=== PATIENT | male | born 1945 | race Hispanic/Latino ===

== ENCOUNTER 2017-04-08 20:51 | Emergency (ER) | payer MEDICARE ==
[~2017-04-08 20:51] MED LIST: CAND32TA9 PO; LEVO500T2 PO
[2017-04-08 21:22] LABS: APPEARANCE,URINE Clear (CLEAR); BILIRUBIN,URINE Negative (NEGATIVE); COLOR,URINE Yellow (YELLOW); GLUCOSE, URINE (UA) Negative (NEGATIVE); KETONES,URINE Negative (NEGATIVE); LEUKOCYTE ESTERASE ,URINE Negative (NEGATIVE); NITRATE,URINE Negative (NEGATIVE); OCCULT BLOOD,URINE Negative (NEGATIVE); PH,URINE 6.5 (5.0-8.0); PROTEIN,URINE Trace (NEGATIVE)
[2017-04-08 21:25] LABS: BASOPHILS % (AUTO) 1.7 % (0.0-5.0); EOSINOPHILS % (AUTO) 2.8 % (0.0-8.0); HEMATOCRIT 35.8 % (42-54); LYMPHOCYTES % (AUTO) 10.2 % (21.0-51.0); MEAN CORPUSCULAR HEMOGLOBIN 28.3 pg (27.0-33.0); MEAN CORPUSCULAR HGB CONC 34.4 g/dL (32.0-36.0); MEAN CORPUSCULAR VOLUME 82.3 fL (79-99); MONOCYTES % (AUTO) 7.8 % (3.0-13.0); NEUTROPHILS % (AUTO) 77.5 % (40.0-77.0); NUCLEATED RED BLOOD CELLS 0.1 % (0.0-0.19); PLATELET COUNT (AUTO) 163 K/uL (130-400); RED BLOOD CELL COUNT(AUTO) 4.35 MIL/uL (4.50-6.20); RED CELL DISTRIBUTION WIDTH 17.1 % (11.0-15.5); WHITE BLOOD COUNT (AUTO) 5.5 K/uL (4.8-10.8)
[2017-04-08 21:32] LABS: BACTERIA,URINE None Seen /HPF (None Seen); MUCUS,URINE Moderate LPF (None Seen); RBC,URINE None Seen /HPF (0-1); SQUAMOUS EPITHELIAL CELL,UR None Seen /LPF (0-2); WBC,URINE None Seen /HPF (0-1); YEAST,URINE BUDDING Moderate /HPF (None Seen)
[2017-04-08 21:35] LABS: CREATININE 1.1 mg/dL (0.5-1.5)
[2017-04-08 21:40] LABS: ALBUMIN 3.7 g/dL (3.5-5.0); BILIRUBIN,TOTAL 0.5 mg/dL (0.2-1.0); TOTAL PROTEIN, SERUM 7.8 g/dL (6.0-8.3)
[2017-04-08] MEDS ORDERED: ACETAMINOPHEN 325 MG TAB ONE (21:41)
[2017-04-08 21:57] LABS: RAPID GROUP A STREP NEGATIVE (NEGATIVE)
[2017-04-08] MEDS ORDERED: IBUPROFEN 600 MG TABLET ONE (22:32)
[2017-04-08] MEDS ORDERED: IPRATROPIUM/ALBUTEROL SULFATE 3 ML SOLUTION IH ONE (23:05)
== END 2017-04-08 23:25 | disposition home or self-care (01) ==
LOC: EDH 20:51
DX: J10.1 Influenza due to other identified influenza virus with other respiratory manifestations (principal); I10 Essential (primary) hypertension
CPT/HCPCS: 36415; 80053; 81001; 85025; 87804; 87880

== ENCOUNTER → 2017-06-15 | Outpatient (CLI) | payer MEDICARE | END | disposition home or self-care (01) | LOC: RAH 12:38 | PROVIDERS: ATTEND Internal Medicine | DX: M25.512 Pain in left shoulder (principal) | CPT/HCPCS: 73221 ==

== ENCOUNTER → 2017-09-09 | Outpatient (CLI) | payer MEDICARE | END | disposition home or self-care (01) | LOC: RAH 09:53 | PROVIDERS: ATTEND Internal Medicine | DX: Z01.812 Encounter for preprocedural laboratory examination (principal); K44.9 Diaphragmatic hernia without obstruction or gangrene | CPT/HCPCS: 71046 ==

== ENCOUNTER 2018-04-21 12:34 | Emergency (ER) | payer MEDICARE | END 2018-04-21 15:31 | disposition home or self-care (01) | LOC: EDH 12:34 | DX: S93.401A Sprain of unspecified ligament of right ankle, initial encounter (principal); I10 Essential (primary) hypertension; Z98.890 Other specified postprocedural states; W18.39XA Other fall on same level, initial encounter; Y93.89 Activity, other specified; Y92.009 Unspecified place in unspecified non-institutional (private) residence as the place of occurrence of the external cause; Y99.8 Other external cause status | CPT/HCPCS: 73610 ==

== ENCOUNTER 2019-05-20 12:27 | Inpatient (IN) | payer MEDICARE ==
[~2019-05-20] VITALS: Ht 177.8 cm; Wt 138.8 kg
[2019-05-20] MEDS ORDERED: ZOSYN 3.375GM+NS 50ML 50 ML IV ONE ×2 (13:00→20:55)
[2019-05-20] MEDS ORDERED: ACETAMINOPHEN EXTRA STRENGTH 500 MG TABLET ONE (13:00)
[2019-05-20] MEDS ORDERED: SODIUM CHLORIDE 0.9% 1000ML 1,000 ML IV ONE ×2 (13:00→17:15)
[2019-05-20 13:13] LABS: BASOPHILS % (AUTO) 0.1 % (0.0-5.0); EOSINOPHILS % (AUTO) 0.4 % (0.0-8.0); HEMATOCRIT 41.7 % (42-54); LYMPHOCYTES % (AUTO) 3.6 % (21.0-51.0); MEAN CORPUSCULAR HEMOGLOBIN 29.4 pg (27.0-33.0); MEAN CORPUSCULAR HGB CONC 33.3 g/dL (32.0-36.0); MEAN CORPUSCULAR VOLUME 88.3 fL (79-99); MONOCYTES % (AUTO) 5.5 % (3.0-13.0); NEUTROPHILS % (AUTO) 89.1 % (40.0-77.0); PLATELET COUNT (AUTO) 117 K/uL (130-400); RED BLOOD CELL COUNT(AUTO) 4.72 MIL/uL (4.50-6.20); RED CELL DISTRIBUTION WIDTH 14.1 % (11.0-15.5); WHITE BLOOD COUNT (AUTO) 13.5 K/uL (4.8-10.8)
[2019-05-20 13:28] LABS: CARBON DIOXIDE 22 mmol/L (21-32); CHLORIDE 97 mmol/L (101-111); CREATININE 1.1 mg/dL (0.5-1.5); GLOMERULAR FILTR. RATE CALC 70 mL/min (>60); GLUCOSE,RANDOM 137 mg/dL (70-105); INR 1.02 (0.85-1.15); PARTIAL THROMBOPLASTIN TIME 34.1 SEC (26.3-35.5); POTASSIUM 3.5 mmol/L (3.5-5.1); SODIUM SERUM 132 mmol/L (136-145); UREA NITROGEN, BLOOD 15 mg/dL (7-18)
[2019-05-20 13:39] LABS: BILIRUBIN,TOTAL 1.9 mg/dL (0.2-1.0); TOTAL PROTEIN, SERUM 7.3 g/dL (6.0-8.3); TROPONIN I < 0.04 ng/mL (0.00-0.06)
[2019-05-20 13:47] LABS: ALANINE AMINOTRANSFERASE 18 U/L (12-78); ALBUMIN 3.3 g/dL (3.5-5.0); ASPARTATE AMINOTRANSFERASE 16 U/L (10-37); CREATINE KINASE, TOTAL 37 U/L (21-232); MYOGLOBIN 50 ng/mL (10-92)
[2019-05-20 13:48] LABS: APPEARANCE,URINE CLEAR (CLEAR); BILIRUBIN,URINE SMALL (NEGATIVE); COLOR,URINE YELLOW (YELLOW); GLUCOSE, URINE (UA) NEGATIVE (NEGATIVE); KETONES,URINE NEGATIVE (NEGATIVE); LEUKOCYTE ESTERASE ,URINE SMALL (NEGATIVE); NITRATE,URINE NEGATIVE (NEGATIVE); OCCULT BLOOD,URINE MODERATE (NEGATIVE); PH,URINE 5.5 (5.0-8.0); PROTEIN,URINE 100 mg/dL (NEGATIVE)
[2019-05-20 13:59] LABS: BACTERIA,URINE Few /HPF (None Seen); RBC,URINE 0-1 /HPF (0-1); WBC,URINE 26-50 /HPF (0-1)
[2019-05-20 14:00] LABS: SQUAMOUS EPITHELIAL CELL,UR Few /HPF (0-2)
[2019-05-20] MEDS ORDERED: HYDRALAZINE HCL 20 MG/ML VIAL IV PRN (15:30)
[2019-05-20] MEDS ORDERED: ONDANSETRON HCL 4 MG/2 ML VIAL IV PRN (15:30)
[2019-05-20] MEDS ORDERED: ACETAMINOPHEN 325 MG TAB PO PRN ×2 (15:30)
[2019-05-20] MEDS ORDERED: FAMOTIDINE/PF 20 MG/2 ML VIAL IV ONE (20:56)
[2019-05-20] MEDS ORDERED: ACETAMINOPHEN 325 MG TAB ONE (21:11)
[2019-05-21] MEDS ORDERED: ZOSYN 3.375GM+NS 50ML 50 ML IV ONE ×3 (04:53→14:11)
[2019-05-21] MEDS ORDERED: FAMOTIDINE/PF 20 MG/2 ML VIAL IV ONE (08:23)
[2019-05-21] MEDS ORDERED: HYDRALAZINE HCL 20 MG/ML VIAL ONE (08:34)
--- NOTE | 2019-05-21 09:54 | NUR ---
EDEMA IN LOWER LEGS Addendum: 05/21/19 at 1008 by HEIKE BARONE RN RN Amended: Links added.
[2019-05-21] MEDS ORDERED: SODIUM CHLORIDE 0.9% 1000ML 1,000 ML IV ONE (10:01)
[2019-05-21 10:06] LABS: BASOPHILS % (AUTO) 0.3 % (0.0-5.0); EOSINOPHILS % (AUTO) 0.3 % (0.0-8.0); HEMATOCRIT 42.5 % (42-54); LYMPHOCYTES % (AUTO) 5.5 % (21.0-51.0); MEAN CORPUSCULAR HEMOGLOBIN 29.6 pg (27.0-33.0); MEAN CORPUSCULAR HGB CONC 32.5 g/dL (32.0-36.0); MEAN CORPUSCULAR VOLUME 91.2 fL (79-99); MONOCYTES % (AUTO) 4.8 % (3.0-13.0); NEUTROPHILS % (AUTO) 88.5 % (40.0-77.0); PLATELET COUNT (AUTO) 117 K/uL (130-400); RED BLOOD CELL COUNT(AUTO) 4.66 MIL/uL (4.50-6.20); RED CELL DISTRIBUTION WIDTH 14.6 % (11.0-15.5); WHITE BLOOD COUNT (AUTO) 11.8 K/uL (4.8-10.8)
[2019-05-21 10:18] LABS: BILIRUBIN,TOTAL 1.4 mg/dL (0.2-1.0); CREATININE 1.2 mg/dL (0.5-1.5); POTASSIUM 3.7 mmol/L (3.5-5.1); TOTAL PROTEIN, SERUM 7.4 g/dL (6.0-8.3)
[2019-05-21] MEDS: SODIUM CHLORIDE 0.9% 1000ML 1,000 ML IV SCH ×3 (18:13→18:15)
[2019-05-21] MEDS: FAMOTIDINE/PF 20 MG/2 ML VIAL IV SCH ×3 (18:13→20:17)
[2019-05-21] MEDS: ZOSYN 3.375GM+NS 50ML 50 ML IV SCH ×4 (18:13→20:16)
[2019-05-21 18:39] VITALS: BP 158/95
[2019-05-21 20:05] VITALS: BP 143/84
[2019-05-21 23:46] VITALS: BP 138/74
[2019-05-22] VITALS (7 sets, daily range): BP systolic 130–155; BP diastolic 76–88
[2019-05-22 04:24] LABS: BASOPHILS % (AUTO) 0.2 % (0.0-5.0); EOSINOPHILS % (AUTO) 0.9 % (0.0-8.0); HEMATOCRIT 38.5 % (42-54); LYMPHOCYTES % (AUTO) 7.2 % (21.0-51.0); MEAN CORPUSCULAR HGB CONC 33.2 g/dL (32.0-36.0); MEAN CORPUSCULAR VOLUME 90.4 fL (79-99); MONOCYTES % (AUTO) 6.5 % (3.0-13.0); NEUTROPHILS % (AUTO) 84.6 % (40.0-77.0); PLATELET COUNT (AUTO) 95 K/uL (130-400); RED BLOOD CELL COUNT(AUTO) 4.26 MIL/uL (4.50-6.20); RED CELL DISTRIBUTION WIDTH 14.4 % (11.0-15.5); WHITE BLOOD COUNT (AUTO) 11.4 K/uL (4.8-10.8)
[2019-05-22 04:40] LABS: ALBUMIN 2.6 g/dL (3.5-5.0); BILIRUBIN,TOTAL 1.1 mg/dL (0.2-1.0); CREATININE 1.2 mg/dL (0.5-1.5); POTASSIUM 3.4 mmol/L (3.5-5.1); TOTAL PROTEIN, SERUM 6.9 g/dL (6.0-8.3)
[2019-05-22] MEDS: ZOSYN 3.375GM+NS 50ML 50 ML IV SCH (05:37)
[2019-05-22] MEDS: SODIUM CHLORIDE 0.9% 1000ML 1,000 ML IV SCH (07:19)
[2019-05-22] MEDS ORDERED: CEFTRIAXONE SODIUM 1 GM IV SCH (09:52)
[2019-05-22] MEDS ORDERED: CEPH500C2 PO (09:56)
[2019-05-22] MEDS ORDERED: POTASSIUM CHLORIDE 20 MEQ ERTAB PO SCH (10:00)
[2019-05-22] MEDS: FAMOTIDINE/PF 20 MG/2 ML VIAL IV SCH ×2 (10:37→20:25)
--- NOTE | 2019-05-22 16:16 | NUR ---
patient arrived to floor. patient alert and oriented. skin dry and intact. patient oriented to room and staff. iv site cdi.
--- NOTE | 2019-05-22 16:25 | NUR ---
SBAR REPORT HANDED TO RAFAEL MENDOZA. PATIENT WAS SAFELY TRANSPORTED VIA WHEELCHAIR BY RADHA SANTO. ALL BELONGINGS WERE PACKED.
[2019-05-22] MEDS: CEFTRIAXONE SODIUM 1 GM IV SCH (20:25)
[2019-05-23 03:00] VITALS: BP 161/89
[2019-05-23 04:54] LABS: BASOPHILS % (AUTO) 0.3 % (0.0-5.0); EOSINOPHILS % (AUTO) 2.3 % (0.0-8.0); HEMATOCRIT 36.5 % (42-54); MEAN CORPUSCULAR HGB CONC 32.1 g/dL (32.0-36.0); MEAN CORPUSCULAR VOLUME 90.6 fL (79-99); MONOCYTES % (AUTO) 6.6 % (3.0-13.0); NEUTROPHILS % (AUTO) 82.6 % (40.0-77.0); PLATELET COUNT (AUTO) 121 K/uL (130-400); RED BLOOD CELL COUNT(AUTO) 4.03 MIL/uL (4.50-6.20); RED CELL DISTRIBUTION WIDTH 14.3 % (11.0-15.5); WHITE BLOOD COUNT (AUTO) 6.2 K/uL (4.8-10.8)
[2019-05-23 05:32] LABS: ALBUMIN 2.5 g/dL (3.5-5.0); BILIRUBIN,TOTAL 0.6 mg/dL (0.2-1.0); CREATININE 1.1 mg/dL (0.5-1.5); POTASSIUM 3.7 mmol/L (3.5-5.1); TOTAL PROTEIN, SERUM 6.7 g/dL (6.0-8.3)
[2019-05-23 08:04] VITALS: BP 144/99
[2019-05-23] MEDS: FAMOTIDINE/PF 20 MG/2 ML VIAL IV SCH (08:42)
[2019-05-23] MEDS: CEFTRIAXONE SODIUM 1 GM IV SCH (08:42)
[2019-05-23] MEDS: SODIUM CHLORIDE 0.9% 1000ML 1,000 ML IV SCH (08:50)
--- NOTE | 2019-05-23 09:30 | NUR ---
CM NOTE MET W PATIENT FOR DISCHARGE PLANNING- PATIENT LIVES WITH DAVID LANDIN WHO WILL PROVIDE TRANSPORT. PT IS ACTIVE AND INDEPENDENT, [facility] HAS NO DME, AND PLAN IS HOME . Addendum: 05/23/19 at 1754 by NATASHA BAEZ RN CM Amended: Links added.
[2019-05-23 12:00] VITALS: BP 148/67
--- NOTE | 2019-05-23 14:13 | NUR ---
0907 gave patient BPCI Letter, notified patient that ABBY Hernandez Coordinator will be following up with him within 90 days after discharge
[2019-05-23 16:00] VITALS: BP 157/92
[2019-05-23 19:55] VITALS: BP 125/86
--- NOTE | 2019-05-23 20:10 | NUR ---
DISCHARGE PATIENT GIVEN DISCHARGE INSTRUCTIONS VIA TEACH BACK BY REJI MOJICA.
== END 2019-05-23 20:40 | disposition home or self-care (01) | DRG 872 ==
LOC: EDH 12:27 → EDHIP 15:19 → 2DH 05-21 18:16 → 4BH 05-22 16:21
PROVIDERS: ADMIT Internal Medicine; ATTEND Internal Medicine
DX: A41.9 Sepsis, unspecified organism (principal); N39.0 Urinary tract infection, site not specified; E87.1 Hypo-osmolality and hyponatremia; E44.1 Mild protein-calorie malnutrition; Z68.41 Body mass index [BMI] 40.0-44.9, adult; E86.1 Hypovolemia; E87.6 Hypokalemia; I10 Essential (primary) hypertension; N39.41 Urge incontinence; N40.0 Benign prostatic hyperplasia without lower urinary tract symptoms; Z83.3 Family history of diabetes mellitus; Z82.5 Family history of asthma and other chronic lower respiratory diseases; Z80.9 Family history of malignant neoplasm, unspecified; Z82.3 Family history of stroke; Z82.0 Family history of epilepsy and other diseases of the nervous system; Z82.49 Family history of ischemic heart disease and other diseases of the circulatory system
CPT/HCPCS: 36415; 71045; 76770; 80053; 81001; 82550; 83605; 83874; 84145; 84484; 85025; 85610; 85730; 87040; 87077; 87088; 87186; 87486; 87581; 87633; 87798; 87804; 93005; G0378; J0360; J0696; J2543; J3490; J7030

== ENCOUNTER → 2020-06-24 | Outpatient (CLI) | payer MEDICARE ==
[~2020-06-24] MED LIST changes: -CAND32TA9 PO; +CEPH500C2 PO; -LEVO500T2 PO
== END | disposition home or self-care (01) ==
LOC: RAH 10:46
PROVIDERS: ATTEND Internal Medicine
DX: N20.0 Calculus of kidney (principal)
CPT/HCPCS: 76770

== ENCOUNTER → 2020-09-24 | Outpatient (CLI) | payer MEDICARE | END | disposition home or self-care (01) | LOC: RAH 14:22 | PROVIDERS: ATTEND Urology Pediatric Urology | DX: N20.0 Calculus of kidney (principal); K57.30 Diverticulosis of large intestine without perforation or abscess without bleeding; K76.0 Fatty (change of) liver, not elsewhere classified; M51.36 Other intervertebral disc degeneration, lumbar region; M48.07 Spinal stenosis, lumbosacral region | CPT/HCPCS: 74176 ==

== ENCOUNTER → 2021-03-13 | Outpatient (CLI) | payer MEDICARE | END | disposition home or self-care (01) | LOC: RAH 14:28 | DX: K44.9 Diaphragmatic hernia without obstruction or gangrene (principal); I72.2 Aneurysm of renal artery; N20.0 Calculus of kidney; R10.9 Unspecified abdominal pain | CPT/HCPCS: 74176 ==

== ENCOUNTER 2021-03-15 16:32 | Emergency (ER) | payer MEDICARE ==
[~2021-03-15] VITALS: Ht 177.8 cm; Wt 140.6 kg
[2021-03-15] MEDS ORDERED: ACETAMINOPHEN 500 MG TABLET PO ONE (17:00)
[2021-03-15 17:05] LABS: APPEARANCE,URINE Clear (CLEAR); BILIRUBIN,URINE Negative (NEGATIVE); COLOR,URINE Yellow (YELLOW); GLUCOSE, URINE (UA) Negative (NEGATIVE); KETONES,URINE Trace mg/dL (NEGATIVE); LEUKOCYTE ESTERASE ,URINE Moderate (NEGATIVE); NITRATE,URINE Negative (NEGATIVE); OCCULT BLOOD,URINE Large (NEGATIVE); PROTEIN,URINE POS 2+ mg/dL (NEGATIVE)
[2021-03-15 17:11] LABS: BASOPHILS % (AUTO) 0.1 % (0.0-5.0); EOSINOPHILS % (AUTO) 0.1 % (0.0-8.0); HEMATOCRIT 43.9 % (42-54); LYMPHOCYTES % (AUTO) 6.3 % (21.0-51.0); MEAN CORPUSCULAR HGB CONC 33.7 g/dL (32.0-36.0); MONOCYTES % (AUTO) 5.7 % (3.0-13.0); NEUTROPHILS % (AUTO) 87.5 % (40.0-77.0); PLATELET COUNT (AUTO) 132 K/uL (130-400); RED BLOOD CELL COUNT(AUTO) 4.93 MIL/uL (4.50-6.20); RED CELL DISTRIBUTION WIDTH 13.3 % (11.0-15.5); WHITE BLOOD COUNT (AUTO) 14.6 K/uL (4.8-10.8)
[2021-03-15 17:13] LABS: RBC,URINE 26-50 /HPF (0-1)
[2021-03-15 17:14] LABS: BACTERIA,URINE Rare /HPF (None Seen); MUCUS,URINE Few LPF (None Seen); SQUAMOUS EPITHELIAL CELL,UR Rare /HPF (0-2)
[2021-03-15] MEDS ORDERED: CEFTRIAXONE 1G VIAL IVP ONE (17:30)
[2021-03-15 17:49] LABS: CREATININE 1.1 mg/dL (0.5-1.5); POTASSIUM 3.9 mmol/L (3.5-5.1)
[2021-03-15 17:54] LABS: TOTAL PROTEIN, SERUM 8.3 g/dL (6.0-8.3)
[2021-03-15 18:25] VITALS: BP 135/74
[2021-03-15] MEDS ORDERED: ACET-66 PO (18:26)
[2021-03-15] MEDS ORDERED: CEPH500B PO (18:26)
== END 2021-03-15 19:07 | disposition home or self-care (01) ==
LOC: EDH 16:32
DX: N39.0 Urinary tract infection, site not specified (principal); Z20.822 Contact with and (suspected) exposure to COVID-19; E11.9 Type 2 diabetes mellitus without complications; E78.00 Pure hypercholesterolemia, unspecified; I10 Essential (primary) hypertension
CPT/HCPCS: 36415; 80053; 81001; 83605; 84145; 85025; 87040 ×2; 87077; 87088; 87186; 87635; 87804 ×2; 96374; 99283; C9803; J0696

== ENCOUNTER → 2021-08-21 | Outpatient (CLI) | payer OTHER ==
[~2021-08-21] MED LIST changes: +ACET-66 PO; +CEPH500B PO
== END | disposition home or self-care (01) ==
LOC: RAH 13:37
PROVIDERS: ATTEND Internal Medicine Cardiovascular Disease
DX: Z13.6 Encounter for screening for cardiovascular disorders (principal); I51.5 Myocardial degeneration
CPT/HCPCS: 75571

== ENCOUNTER 2022-01-10 17:09 | Emergency (ER) | payer MEDICARE ==
[~2022-01-10] VITALS: Ht 180.3 cm; Wt 141.5 kg
[2022-01-10 17:11] VITALS: BP 164/104
[2022-01-10] MEDS ORDERED: 0.9%NACL 1000ML 1,000 ML IV SCH (17:30)
[2022-01-10] MEDS ORDERED: IBUPROFEN 800 MG TAB PO ONE (17:30)
[2022-01-10] MEDS ORDERED: CEFTRIAXONE 1G VIAL IVP ONE (17:30)
[2022-01-10] MEDS ORDERED: ACETAMINOPHEN 500 MG TABLET PO ONE (17:30)
[2022-01-10 18:02] LABS: BASOPHILS % (AUTO) 0.2 % (0.0-5.0); EOSINOPHILS % (AUTO) 0.2 % (0.0-8.0); HEMATOCRIT 43.3 % (42-54); LYMPHOCYTES % (AUTO) 5.3 % (21.0-51.0); MEAN CORPUSCULAR HEMOGLOBIN 31.1 pg (27.0-33.0); MEAN CORPUSCULAR HGB CONC 34.4 g/dL (32.0-36.0); MEAN CORPUSCULAR VOLUME 90.4 fL (79-99); MONOCYTES % (AUTO) 3.5 % (3.0-13.0); NEUTROPHILS % (AUTO) 90.3 % (40.0-77.0); PLATELET COUNT (AUTO) 157 K/uL (130-400); RED BLOOD CELL COUNT(AUTO) 4.79 MIL/uL (4.50-6.20); RED CELL DISTRIBUTION WIDTH 13.4 % (11.0-15.5); WHITE BLOOD COUNT (AUTO) 13.1 K/uL (4.8-10.8)
[2022-01-10 18:05] LABS: APPEARANCE,URINE CLEAR (CLEAR); BILIRUBIN,URINE NEGATIVE (NEGATIVE); COLOR,URINE LIGHT-YELLOW (YELLOW); GLUCOSE, URINE (UA) NEGATIVE (NEGATIVE); KETONES,URINE NEGATIVE (NEGATIVE); LEUKOCYTE ESTERASE ,URINE 250 Leu/uL (NEGATIVE); NITRATE,URINE NEGATIVE (NEGATIVE); OCCULT BLOOD,URINE SMALL (NEGATIVE); PH,URINE 5.5 (5.0-8.0); PROTEIN,URINE 30 mg/dL (NEGATIVE); UROBILINOGEN,URINE 0.2 mg/dL (0.2-1.0)
[2022-01-10 18:14] LABS: BACTERIA,URINE FEW /HPF (None Seen); MUCUS,URINE RARE LPF (None Seen); WBC,URINE 26-50 /HPF (0-1)
[2022-01-10 18:22] LABS: ALBUMIN 3.8 g/dL (3.5-5.0); CRP QUANTITATIVE 43.9 mg/L (0.00-9.0); POTASSIUM 3.9 mmol/L (3.5-5.1); TOTAL PROTEIN, SERUM 8.1 g/dL (6.0-8.3)
[2022-01-10] MEDS ORDERED: ACET-2247 PO (18:37)
[2022-01-10] MEDS ORDERED: CEFU500T67 PO (18:37)
[2022-01-10] MEDS ORDERED: IBUP-2071 PO (18:37)
== END 2022-01-10 19:00 | disposition home or self-care (01) ==
LOC: EDH 17:09
DX: N39.0 Urinary tract infection, site not specified (principal); E66.01 Morbid (severe) obesity due to excess calories; E86.0 Dehydration; I10 Essential (primary) hypertension; Z68.41 Body mass index [BMI] 40.0-44.9, adult
CPT/HCPCS: 80053; 85025; 87040 ×2; 87077; 87088; 87186; 87804 ×2; 83605; 86140; 81001; 36415; 96374; 99283; 96361; J7030; J0696

== ENCOUNTER → 2022-12-13 | Outpatient (CLI) | payer MEDICARE ==
[~2022-12-13] MED LIST changes: +ACET-2247 PO; +CEFU500T67 PO; +IBUP-2071 PO
== END | disposition home or self-care (01) ==
LOC: RAH 14:35
PROVIDERS: ATTEND Urology
DX: N20.0 Calculus of kidney (principal); M47.815 Spondylosis without myelopathy or radiculopathy, thoracolumbar region
CPT/HCPCS: 74018

== ENCOUNTER 2023-06-22 09:47 | Emergency (ER) | payer MEDICARE ==
[~2023-06-22] VITALS: Ht 177.8 cm; Wt 129.3 kg
[2023-06-22 10:10] LABS: BASOPHILS # (AUTO) 0.03 K/uL (0.00-0.20); BASOPHILS % (AUTO) 0.2 % (0.0-5.0); EOSINOPHILS # (AUTO) 0.06 K/uL (0.00-0.70); EOSINOPHILS % (AUTO) 0.4 % (0.0-8.0); HEMATOCRIT 38.7 % (42-54); IMMATURE GRANULOCYTE ABSOLUTE 0.07 K/uL (0-1); LYMPHOCYTES # (AUTO) 0.7 K/uL (1.0-4.8); MEAN CORPUSCULAR HEMOGLOBIN 30.8 pg (27.0-33.0); MEAN CORPUSCULAR HGB CONC 34.9 g/dL (32.0-36.0); MEAN CORPUSCULAR VOLUME 88.4 fL (79-99); MONOCYTES # (AUTO) 0.5 K/uL (0.1-1.0); MONOCYTES % (AUTO) 3.2 % (3.0-13.0); NEUTROPHILS # (AUTO) 14.8 K/uL (1.8-7.7); NEUTROPHILS % (AUTO) 91.8 % (40.0-77.0); PLATELET COUNT (AUTO) 148 K/uL (130-400); RED BLOOD CELL COUNT(AUTO) 4.38 MIL/uL (4.50-6.20); WHITE BLOOD COUNT (AUTO) 16.1 K/uL (4.8-10.8)
[2023-06-22 10:18] LABS: CREATININE 1.1 mg/dL (0.5-1.3); POTASSIUM 3.9 mmol/L (3.5-5.1)
[2023-06-22 10:23] LABS: APPEARANCE,URINE CLOUDY (CLEAR); BILIRUBIN,URINE NEGATIVE (NEGATIVE); COLOR,URINE YELLOW (YELLOW); GLUCOSE, URINE (UA) NEGATIVE (NEGATIVE); KETONES,URINE NEGATIVE (NEGATIVE); LEUKOCYTE ESTERASE ,URINE 500 Leu/uL (NEGATIVE); NITRATE,URINE 1+ (NEGATIVE); OCCULT BLOOD,URINE SMALL (NEGATIVE); PROTEIN,URINE 100 mg/dL (NEGATIVE); UROBILINOGEN,URINE 0.2 mg/dL (0.2-1.0)
[2023-06-22 10:31] LABS: ADD UA MICROSCOPIC YES
[2023-06-22 10:33] LABS: BACTERIA,URINE MOD /HPF (None Seen); MUCUS,URINE RARE LPF (None Seen); NON-SQUAMOUS EPITHELIAL CELL 2 /HPF (0-2); RBC,URINE 26-50 /HPF (0-1); SQUAMOUS EPITHELIAL CELL,UR RARE /HPF (0-2); WBC CLUMP FEW /HPF (0-1); WBC,URINE TNTC /HPF (0-1)
[2023-06-22] MEDS: 0.9% NACL 500ML IV.SOLN 500 ML IV SCH (10:38)
[2023-06-22] MEDS: CEFTRIAXONE 1G VIAL IVPB ONE (10:38)
[2023-06-22 11:44] VITALS: BP 139/81; PULSE 96; RESP 18; O2SAT 96
[2023-06-22] MEDS ORDERED: CEPH500B PO (12:04)
== END 2023-06-22 12:29 | disposition home or self-care (01) ==
LOC: EDH 09:47
DX: N39.0 Urinary tract infection, site not specified (principal); R32 Unspecified urinary incontinence; I10 Essential (primary) hypertension
CPT/HCPCS: 99283; 96374; 80048; 85025; 87077; 87088; 87186; 83605; 81001; 36415; J7040; J0696

== ENCOUNTER → 2024-02-22 | Outpatient (CLI) | payer MEDICARE ==
--- NOTE | 2024-02-22 11:16 | HMCIMG ---
US ART IN & VEIN OUT HISTORY: Aneurysm of renal artery COMPARISON: None TECHNIQUE: Renal and renal arterial Doppler ultrasound study was performed. FINDINGS: The right kidney measures 10.2 x 5.7 x 4.7 cm. The left kidney measures 12 x 6.3 x 5.4 cm. No evidence of hydronephrosis is seen of either kidney. Both kidneys are seen. The study is limited due to patient's large body habitus. Bladder wall measures 3 mm. Bladder is moderately distended. Peak systolic velocity of right renal artery is 64 cm/s, left renal artery is 138 cm/s and abdominal aorta is 69 cm/s. Right renal artery aortic ratio is 0.9. Left renal artery aortic ratio is 2.0. Normal arterial waveforms are seen of the renal arteries bilaterally. IMPRESSION: 1. No hydronephrosis is seen. Normal renal arterial Doppler ultrasound study.
== END | disposition home or self-care (01) ==
LOC: CANPRECLI → RAH 08:37
PROVIDERS: ATTEND Internal Medicine
DX: I72.2 Aneurysm of renal artery (principal)
CPT/HCPCS: 76770; 93975

== ENCOUNTER 2024-10-26 22:06 | Emergency (ER) | payer MEDICARE ==
[~2024-10-26] VITALS: Ht 177.8 cm; Wt 138.8 kg
[2024-10-26 22:08] VITALS: BP 170/94; PULSE 103; RESP 20; TEMP 99.7; O2SAT 96
[2024-10-26 22:41] LABS: APPEARANCE,URINE CLEAR (CLEAR); GLUCOSE, URINE (UA) NEGATIVE (NEGATIVE); LEUKOCYTE ESTERASE ,URINE 250 Leu/uL (NEGATIVE); NITRATE,URINE NEGATIVE (NEGATIVE); OCCULT BLOOD,URINE +- (TRACE) (NEGATIVE)
--- NOTE | 2024-10-26 22:42 | ERN ---
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 Patient reports he had these symptoms when he had a UTI in the past. Patient otherwise denies any flank pain, denies any back pain or back trauma, denies any abdominal pain, denies any nausea vomiting or diarrhea. Allergies: Coded Allergies: No Known Drug Allergies (Verified Allergy, 10/11/12) Home Meds Active Scripts Cephalexin Monohydrate (Keflex) 500 Mg Cap, 500 MG PO TID for 7 Days, #21 CAP Prov:KAUR ESTEVEZ V [employer]PLANE DISPATCH CLERK 06/22/23 Acetaminophen (Tylenol) 325 Mg Tablet, 650 MG PO Q4HPRN, #50 TAB Prov:SAAD PARADA 01/10/22 Ibuprofen (Ibuprofen) 800 Mg Tablet, 800 MG PO TID PRN for PAIN, #30 TAB Prov:SAAD PARADA 01/10/22 Cefuroxime Axetil (Cefuroxime) 500 Mg Tablet, 500 MG PO BID for 10 Days, #20 TAB Prov:SAAD PARADA 01/10/22 Acetaminophen (Acetaminophen) 500 Mg Tablet, 1000 MG PO QID, #50 TAB Prov:JAYDEN MEZA MD 03/15/21 Cephalexin Monohydrate (Keflex) 500 Mg Cap, 500 MG PO TID for 7 Days, #21 CAP Prov:JAYDEN MEZA MD 03/15/21 Cephalexin (Cephalexin) 500 Mg Capsule, 500 MG PO TID for 5 Days, #15 CAP Prov:GENA GOLDEN NP 05/22/19 Past Medical History Past Medical History: Cancer, Hypertension, UTI 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 Surgical History: Other Surgical History Other: LEFT LEG SX Family History: Negative Social History: Negative, Lives with family RN Note Reviewed/Agreed w/PFSH: Yes Review of System Dictation Constitutional: Negative for fever, and weight loss positive for chills Eyes: Negative for injury, pain,redness, and discharge ENT: Negative for injury,pain or swelling Cardiovascular: Negative for chest pain, palpitations, and edema Respiratory: Negative for shortness of breath, cough, and wheezing, Abdomen/GI: Negative for abdominal pain, nausea, vomiting, diarrhea, and constipation Back: Negative for injury and pain : Negative for injury, bleeding and discharge positive for urinary incontinence MS/Extremity: Negative for injury and deformity Skin: Negative for rash, and discoloration Neuro: Negative for headache, weakness, numbness, tingling, and seizure Psych: Negative for suicide ideation, homicidal ideation, and hallucinations Initial Vital Sign VS Vital Signs Date Time Temp Pulse Resp B/P (MAP) Pulse Ox O2 Delivery O2 Flow Rate FiO2 10/26/24 22:08 99.7 103 20 170/94 96 Room Air Physical Exam Dictation Vital Signs reviewed General Appearance: Alert, oriented x 3, no acute distress, well developed, nourished. Head and Face: non-traumatic. Eyes: PERRL, pink conjunctivas, eyelid no trauma, anterior chamber with arcus senilis. Ears: Pinnas intact and no signs of trauma or erythema ear canals clear and no discharge TM no erythema Nose: No discharge, no bleeding. Oropharynx: Mouth normal, tongue pink. pharynx clear,no erythema, tonsils no exudates, no abscesses noted, mucous membrane moist Neck: Supple, non-tender, no thyromegaly, no masses, no JVD, no bruits Breast:Deferred Chest:No tenderness, no crepitus, no paradoxical movement, no retractions Lungs:Clear, well-ventilated, symmetric, no rales, no wheezing, no rhonchi, no stridor, good breath sounds bilaterally Heart: Regular rate, regular rhythm, no murmur, no gallops Vascular: no peripheral edema, Abdomen: Soft, positive bowel sounds, nondistended, no guarding, nontender, no rebound, no masses no hepatomegaly, no splenomegaly, no Montano's sign, no hernias. Rectal: Deferred Genital: Deferred Neurological: Normal speech, motor function intact, sensory function intact Musculoskeletal: Neck nontender, full range of motion, back nontender, full range of motion, Extremities: nontender, full range of motion Skin: Color pink, dry, no turgor, no rash, no lacerations, no abrasions, no contusions. Lymphatic: Deferred Results (Laboratory/Radiology) Laboratory/Radiology Laboratory Tests Test 10/26/24 22:21 10/26/24 22:35 Urine Color YELLOW (YELLOW) Urine Appearance CLEAR (CLEAR) Urine pH 6.5 (5.0-8.0) Urine Specific [place] 1.020 (1.001-1.031) Urine Protein 50 mg/dL (NEGATIVE) H Urine Glucose (UA) NEGATIVE mg/dL (NEGATIVE) Urine Ketones NEGATIVE mg/dL (NEGATIVE) Urine Occult Blood +- (TRACE) (NEGATIVE) H Urine Nitrate NEGATIVE (NEGATIVE) Urine Bilirubin NEGATIVE mg/dL (NEGATIVE) Urine Urobilinogen 0.2 mg/dL (0.2-1.0) Urine Leukocyte Esterase 250 [place]/uL (NEGATIVE) H Urine RBC 2-5 /HPF (0-1) H Urine WBC 51-100 /HPF (0-1) H Urine Squamous Epithelial Cells RARE /HPF (0-2) Urine Bacteria RARE /HPF (None Seen) White Blood Count 13.3 K/uL (4.8-10.8) H Red Blood Count 4.42 MIL/uL (4.50-6.20) L Hemoglobin 13.7 g/dL (14.0-18.0) L Hematocrit 40.3 % (42-54) L Mean Corpuscular Volume 91.2 fL (79-99) Mean Corpuscular Hemoglobin 31.0 pg (27.0-33.0) Mean Corpuscular Hemoglobin Concent 34.0 g/dL (32.0-36.0) Red Cell Distribution Width 13.7 % (11.0-15.5) Platelet Count 129 K/uL (130-400) L Mean Platelet Volume 9.5 fL (7.5-10.5) Immature Granulocyte % (Auto) 0.3 % (0-1) Neutrophils (%) (Auto) 91.3 % (40.0-77.0) H Lymphocytes (%) (Auto) 3.7 % (21.0-51.0) L Monocytes (%) (Auto) 4.1 % (3.0-13.0) Eosinophils (%) (Auto) 0.4 % (0.0-8.0) Basophils (%) (Auto) 0.2 % (0.0-5.0) Neutrophils # (Auto) 12.2 K/uL (1.8-7.7) H Lymphocytes # (Auto) 0.5 K/uL (1.0-4.8) L Monocytes # (Auto) 0.6 K/uL (0.1-1.0) Eosinophils # (Auto) 0.05 K/uL (0.00-0.70) Basophils # (Auto) 0.03 K/uL (0.00-0.20) Absolute Immature Granulocyte (auto 0.04 K/uL (0-1) Nucleated Red Blood Cells 0.0 % (0.0-0.19) Sodium Level 133 mmol/L (136-145) L Potassium Level 4.1 mmol/L (3.5-5.1) Chloride Level 100 mmol/L (101-111) L Carbon Dioxide Level 26 mmol/L (21-32) Blood Urea Nitrogen 21 mg/dL (7-18) H Creatinine 1.1 mg/dL (0.5-1.3) Glomerular Filtration Rate Calc 69 mL/min (>90) Random Glucose 134 mg/dL (70-105) H Total Calcium 9.1 mg/dL (8.5-10.1) Labs Reviewed?: Yes ED Course ED Course Orders Procedure Category Date Status Time Cbc With Differential LAB 10/26/24 In Process 22:26 Urinalysis Profile LAB 10/26/24 Complete 22:26 Basic Metabolic Panel LAB 10/26/24 Complete 22:26 Culture Urine HELIO 10/26/24 In Process 22:45 Ceftriaxone 1g Vial PHA 10/26/24 Complete (Rocephine 1g Inj) 23:00 Current Medications Medications (Trade) Dose Ordered Sig/Luzmaria Route PRN Reason Start Time Stop Time Status Last Admin Dose Admin Ceftriaxone Sodium (ROCEphine 1G INJ) 1 gm ONCE ONCE IVPB 10/26/24 23:00 10/26/24 23:01 DC 10/26/24 23:05 Vital Signs Date Time Temp Pulse Resp B/P (MAP) Pulse Ox O2 Delivery O2 Flow Rate FiO2 10/26/24 22:08 99.7 103 20 170/94 96 Room Air Medical Decision Making MDM The patient is a 79-year-old male with a history of hypertension, 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 Patient reports he had these symptoms when he had a UTI in the past. Patient otherwise denies any flank pain, denies any back pain or back trauma, denies any abdominal pain, denies any nausea vomiting or diarrhea. CBC showed mild leukocytosis, mild normocytic anemia, chemistry showed mild hyponatremia, hypochloremia, creatinine of 1.1. Urinalysis positive for leukocyte esterase. On physical exam patient is in no acute distress, nontoxic appearance, afebrile, stable vital signs. I spoke to patient about lab results and outpatient treatment. At this time patient agrees to be treated as outp atient and agrees to return if symptoms do not improve or worsen. Patient with a history of UTIs. Patient instructed on the importance of following up with urine culture. Differential diagnosis: UTI, pyelonephritis, dehydration, electrolyte imbalance Need for hospitalization: Patient does not meet criteria for hospitalization. There are no social concerns with this patient. DX & DISP Disposition: Discharge Departure Impression: Primary Impression: UTI (urinary tract infection) Condition: Stable Scripts Nitrofurantoin Monohyd/M-Cryst (Macrobid 100 mg Capsule) 100 Mg Capsule 1 CAP PO BID for 10 Days, #20 CAP 0 Refills Prov: ISABEL EATON AIRPLANE DISPATCH CLERK 10/26/24 Additional Instructions: You have a urinary tract infection. You will be treated with antibiotics. Please take your antibiotics as prescribed and until finished. Your primary doctor will need to follow up on urine cultures to make sure the antibiotic I have given you is appropriate for your bacteria. Urine cultures usually take about three days. If your symptoms worsen, you starts developing fevers nausea or vomiting, weakness or if anything worsens please return to ER for further evaluation. Otherwise please follow up with your primary doctor. FOLLOW-UP WITH PRIMARY CARE PROVIDER IN 1 TO 2 DAYS. TAKE MEDICATIONS DIRECTED HERE IN THE EMERGENCY ROOM. OKAY TO CONTINUE HOME MEDICATIONS UNLESS OTHERWISE DISCUSSED DURING YOUR VISIT IN THE EMERGENCY ROOM TODAY. RETURN TO YOUR NEAREST EMERGENCY ROOM IF SYMPTOMS WORSEN OR IF THERE IS NO IMPROVEMENT. CALL 911 IF YOU NEED IMMEDIATE ASSISTANCE. TAKE TYLENOL [id number] NEEDED AND IF NO CONTRAINDICATIONS ARE PRESENT. INCREASE ORAL HYDRATION. A WOUND CULTURE OR URINE CULTURE WAS ORDERED HERE IN THE EMERGENCY ROOM DEPARTMENT PLEASE FOLLOW-UP WITH PRIMARY CARE PROVIDER AND ADVISE THEM TO GET REPEAT PORTS FROM OUR FACILITY. IF YOU HAD ANY JOSSUE WRAP/SPLINTS THAT WERE APPLIED HERE, PLEASE DO NOT REMOVE THEM UNTIL YOU SEE YOUR PRIMARY CARE OR SPECIALTY. Referrals: JESS LOPEZ MD (PCP) Time of Disposition: 23:24 I have reviewed the case, and I agree with, Diagnosis and Plan ISABEL EATON [facility] Oct 26, 2024 22:42
[2024-10-26 22:44] LABS: ADD UA MICROSCOPIC YES
[2024-10-26 22:46] LABS: SQUAMOUS EPITHELIAL CELL,UR RARE /HPF (0-2)
[2024-10-26 22:46] LABS: IMMATURE GRANULOCYTE ABSOLUTE 0.04 K/uL (0-1); NUCLEATED RED BLOOD CELLS 0.0 % (0.0-0.19); PLATELET COUNT (AUTO) 129 K/uL (130-400); RED BLOOD CELL COUNT(AUTO) 4.42 MIL/uL (4.50-6.20); RED CELL DISTRIBUTION WIDTH 13.7 % (11.0-15.5); WHITE BLOOD COUNT (AUTO) 13.3 K/uL (4.8-10.8)
[2024-10-26 22:52] LABS: CREATININE 1.1 mg/dL (0.5-1.3); GLOMERULAR FILTR. RATE CALC 69.0 mL/min (>90); GLUCOSE,RANDOM 134.0 mg/dL (70-105); SODIUM SERUM 133.0 mmol/L (136-145); UREA NITROGEN, BLOOD 21.0 mg/dL (7-18)
[2024-10-26] MEDS ORDERED: NITR100C4 PO (23:25)
[2024-10-26 23:35] LABS: WBC MORPHOLOGY CONSISTENT W/DIFF
== END 2024-10-26 23:47 | disposition home or self-care (01) ==
LOC: EDH 22:06
DX: N39.0 Urinary tract infection, site not specified (principal); I10 Essential (primary) hypertension; Z87.440 Personal history of urinary (tract) infections
CPT/HCPCS: 99284; 96374; 80048; 85025; 87086 ×2; 87186; 81001; 36415; J0696; 99283